=== PATIENT | female | born 1985 | race African-American/Black ===

== ENCOUNTER 2018-01-13 09:29 | Outpatient (CLI) | payer OTHER ==
[~2018-01-13 09:29] MED LIST: CIPRO500 MG PO; MOTRIN800 MG PO; PREDNISONE5 MG/DOSE- PO; SUDAFED PE10 MG PO
== END 2018-01-13 09:36 | disposition home or self-care (01) ==
LOC: LAB 09:29
DX: Z11.3 Encounter for screening for infections with a predominantly sexual mode of transmission (principal)